=== PATIENT | female | born 1980 | race Two or more races ===

== ENCOUNTER 2023-09-25 05:07 | Day surgery (SDC) | payer OTHER ==
[2023-09-19 10:41] LABS: HEMATOCRIT 41.6 % (36.0-45.00); HEMOGLOBIN 14.1 g/dL (12.0-15.00); MEAN CELL VOLUME 84.4 fL (80.00-100.00); MEAN CORPUSCULAR HEMOGLOBIN 28.6 pg (27.00-32.0); MEAN CORPUSCULAR HGB CONC 33.9 g/dl (32.0-36.0); PLATELET COUNT 394 K/uL (150-450); RED BLOOD COUNT 4.93 M/uL (4.00-6.00); RED CELL DISTRIBUTION WIDTH 13.9 % (11.5-14.5)
[2023-09-19 10:43] LABS: PH,URINE 6.5 (5.0-8.0); URINE APPEARANCE Clear; URINE BILIRRUBIN Negative (NEGATIVE); URINE BLOOD Negative; URINE COLOR Yellow; URINE GLUCOSE Negative (NEGATIVE); URINE LEUKOCYTE Trace; URINE NITRATE Negative; URINE PROTEIN Negative (NEGATIVE)
[2023-09-19 10:47] LABS: URINE BACTERIA 235.5 uL (0.0-1933); URINE EPITHELIAL CELLS 14.5 uL (0.0-38.8); URINE RBC 11.9 uL (0.0-20.8); URINE WBC 4.6 uL (0.0-23.2)
[2023-09-19 11:28] LABS: INR 0.99; PARTIAL THROMBOPLASTIN TIME 31.3 SECONDS (22.0-34.0); PROTHROMBIN TIME 10.4 SECONDS (9.0-11.5)
[2023-09-19 11:40] LABS: ALBUMIN 3.7 gm/dL (3.4-5.0); BILIRUBIN TOTAL 0.48 mg/dL (0.3-1.2); CALCIUM 9.3 mg/dL (8.5-10.1); CREATININE SERUM 0.66 mg/dL (0.55-1.02); GFR 99.19; GLOBULINA 3.9 G/DL (2.4-3.5); POTASSIUM 4.15 mEq/L (3.5-5.1); TOTAL PROTEIN 7.6 gm/dL (6.4-8.2); TSH 1.61 uIU/mL (0.358-3.74)
[2023-09-25] MEDS ORDERED: CEFOXITIN SODIUM 2,000 MG VIAL IV ONE (07:03)
[2023-09-25] MEDS ORDERED: POVIDONE-IODINE SCRUB 118 ML BOTT TOP ONE (07:14)
[2023-09-25] MEDS ORDERED: POVIDONE-IODINE 118 ML BOTT TOP ONE (07:16)
[2023-09-25] MEDS ORDERED: MORPHINE SULFATE 4 MG/ML VIAL IV PRN (09:00)
[2023-09-25] MEDS ORDERED: PROMETHAZINE HCL 50 MG/ML AMPUL IM ONE (09:00)
[2023-09-25] MEDS ORDERED: MORGIDOX100 MG PO (09:15)
[2023-09-25] MEDS ORDERED: Tylenol #3 PO (09:15)
[2023-09-25] MEDS ORDERED: NAPR500T14 PO (09:15)
== END 2023-09-25 10:50 | disposition home or self-care (01) ==
LOC: CIR.AMB 05:07
PROVIDERS: ATTEND Obstetrics & Gynecology
DX: N85.01 Benign endometrial hyperplasia (principal); N84.0 Polyp of corpus uteri; N92.5 Other specified irregular menstruation; R10.2 Pelvic and perineal pain; R00.1 Bradycardia, unspecified